=== PATIENT | female | born 1980 | race American Indian/Alaskan Native ===

== ENCOUNTER 2020-03-16 12:11 | Emergency (ER) | payer OTHER ==
[2020-03-16] MEDS ORDERED: ASPIRIN 325 MG TAB PO ONE (12:21)
[2020-03-16 13:01] LABS: Basophils # (Auto) 0.1 K/mm3 (0.0-0.1); Basophils % (Auto) 1.4 % (0.0-1.8); Eosinophils # (Auto) 0.2 K/mm3 (0.0-0.4); Eosinophils % (Auto) 2.6 % (0.0-4.3); Hematocrit 37.8 % (30.3-42.9); Hemoglobin 12.5 gm/dl (10.1-14.3); Lymphocytes % (Auto) 38.2 % (13.4-35.0); Mean Corpuscular HGB Conc 33 % (30-34); Mean Corpuscular Volume 84 fl (79-97); Monocytes # (Auto) 0.9 K/mm3 (0.0-0.8); Monocytes % (Auto) 11.8 % (0.0-7.3); Platelet Count 428 K/mm3 (140-440); Red Blood Count 4.51 M/mm3 (3.65-5.03); Red Cell Distribution Width 14.2 % (13.2-15.2)
--- NOTE | 2020-03-16 13:01 | XRay Report ---
CHEST 1 VIEW INDICATION / CLINICAL INFORMATION: Chest Pain. FINDINGS: SUPPORT DEVICES: None. HEART / MEDIASTINUM: No significant abnormality. LUNGS / PLEURA: No significant pulmonary or pleural abnormality. No pneumothorax. ADDITIONAL FINDINGS: No significant additional findings. IMPRESSION: 1. No acute findings. Signer Name: Jeremy Venegas MD Signed: 03/16/2020 12:56 PM Workstation Name: [id number]
[2020-03-16 13:29] LABS: Blood Urea Nitrogen 13 mg/dL (7-17); Calcium 9.3 mg/dL (8.4-10.2); Hemolysis Index 35
[2020-03-16 13:36] LABS: BUN/Creatinine Ratio 19
[2020-03-16 16:25] VITALS: BP 164/113
--- NOTE | 2020-03-16 16:29 | Event Note ---
ED Screening Note Date of service: 03/16/20 Time: 16:26 ED Screening Note: Pt c/o chest pain x1 week states newly diagnosed HTN denies leg pain/swelling or recent long travel This initial assessment/diagnostic orders/clinical plan/treatment(s) is/are subject to change based on patients health status, clinical progression and re- assessment by fellow clinical providers in the ED. Further treatment and workup at subsequent clinical providers discretion. Patient/guardian urged not to elope from the ED as their condition may be serious if not clinically assessed and managed. Initial orders include: labs ekg chest xr
--- NOTE | 2020-03-16 17:42 | Emergency Department Report ---
ED Chest Pain HPI - General Chief Complaint: Chest Pain Stated Complaint: chest pains Time Seen by Provider: 03/16/20 14:56 Source: patient Mode of arrival: Ambulatory Limitations: No Limitations - History of Present Illness Initial Comments: 40-year-old -[place] female patient presents with complaints of chest pain x1 week. Patient states pain has been intermittent and mostly left-sided. She describes the pain as a dull pressure. She reports last week she was newly diagnosed with hypertension when she was seen in the ED for a migraine. Patient states her blood pressure has been running in the 170s/ 110s since. She states she was not put on blood pressure medication for home. She also reports that she has an appointment with [facility] cardiology tomorrow. She rates her current pain as a 5/10 in severity. She denies any shortness of breath, leg pain/swelling, hormone use, history of DVT/PE/cancer, cough, or hemoptysis. Mumtaz downey also denies any personal or family history of heart disease. - Related Data Previous Rx's Medication Instructions Recorded Last Taken Type Naproxen [Naprosyn TAB] 500 mg PO BID PRN #15 tablet 04/26/15 Unknown Rx Acetaminophen/Codeine [Tylenol #3] 1 tab PO Q6H PRN #20 tab 06/01/15 Unknown Rx Ibuprofen [Motrin 800 MG tab] 800 mg PO Q8HR PRN #30 tablet 06/01/15 Unknown Rx Azithromycin [Zithromax TAB] 500 mg PO DAILY #5 tablet 06/25/18 Unknown Rx guaiFENesin [Robitussin] 200 mg PO TID #100 ml 06/25/18 Unknown Rx predniSONE [Deltasone] 20 mg PO DAILY #4 tablet 06/25/18 Unknown Rx amLODIPine 5 mg PO DAILY 14 Days #14 tab 03/16/20 Unknown Rx Allergies Allergy/AdvReac Type Severity Reaction Status Date / Time sumatriptan [From Imitrex] AdvReac Unknown Verified 04/25/15 18:52 sumatriptan succinate AdvReac Unknown Verified 04/25/15 18:52 [From Imitrex] Heart Score - HEART Score History: Slightly suspicious EKG: Normal Age: < 45 Risk factors: 1-2 risk factors Troponin: < normal limit HEART Score: 1 - Critical Actions Critical Actions: 0-3 pts:0.9-1.7%risk of adverse cardiac event.Candidate for discharge ED Review of Systems ROS: Stated complaint: chest pains Other details as noted in HPI Constitutional: denies: chills, diaphoresis, fever, malaise, weakness Eyes: denies: vision change ENT: denies: throat pain Respiratory: denies: cough, shortness of breath Cardiovascular: chest pain. denies: edema, syncope Gastrointestinal: denies: abdominal pain, nausea Skin: denies: change in color Neurological: denies: headache, numbness, paresthesias Hematological/Lymphatic: denies: easy bleeding ED Past Medical Hx - Past Medical History Previous Medical History?: Yes Hx Headaches / Migraines: Yes Hx Asthma: Yes - Surgical History Past Surgical History?: Yes Additional Surgical History: ACL repair, left side - Social History Smoking Status: Never Smoker Substance Use Type: None - Medications Home Medications: Home Medications Medication Instructions Recorded Confirmed Last Taken Type Naproxen [Naprosyn TAB] 500 mg PO BID PRN #15 tablet 04/26/15 Unknown Rx Acetaminophen/Codeine [Tylenol #3] 1 tab PO Q6H PRN #20 tab 06/01/15 Unknown Rx Ibuprofen [Motrin 800 MG tab] 800 mg PO Q8HR PRN #30 tablet 06/01/15 Unknown Rx Azithromycin [Zithromax TAB] 500 mg PO DAILY #5 tablet 06/25/18 Unknown Rx guaiFENesin [Robitussin] 200 mg PO TID #100 ml 06/25/18 Unknown Rx predniSONE [Deltasone] 20 mg PO DAILY #4 tablet 06/25/18 Unknown Rx amLODIPine 5 mg PO DAILY 14 Days #14 tab 03/16/20 Unknown Rx ED Physical Exam - General Limitations: No Limitations General appearance: alert, in no apparent distress, obese - Head Head exam: Present: atraumatic, normocephalic - Eye Eye exam: Present: normal appearance. Absent: scleral icterus - Neck Neck exam: Present: normal inspection - Respiratory Respiratory exam: Present: normal lung sounds bilaterally. Absent: respiratory distress - Cardiovascular Cardiovascular Exam: Present: regular rate, normal rhythm. Absent: systolic murmur, diastolic murmur, rubs, gallop - GI/Abdominal GI/Abdominal exam: Present: soft. Absent: distended, tenderness, guarding, rebound, rigid - Extremities Exam Extremities exam: Present: normal inspection, full ROM - Back Exam Back exam: Present: normal inspection - Neurological Exam Neurological exam: Present: alert, oriented X3, CN II-XII intact, normal gait - Psychiatric Psychiatric exam: Present: normal affect, normal mood - Skin Skin exam: Present: warm, dry, intact, normal color. Absent: rash, cyanosis, diaphoretic ED Course Vital Signs 03/16/20 03/16/20 12:20 16:24 Temperature 97.8 F 98.2 F Pulse Rate 66 73 Respiratory 20 16 Rate Blood Pressure 170/123 164/113 [Right] O2 Sat by Pulse 97 99 Oximetry ED Medical Decision Making - Lab Data Result diagrams: 03/16/20 12:26 03/16/20 12:26 Lab Results 03/16/20 03/16/20 Range/Units 12:26 12:26 WBC 7.9 (4.5-11.0) K/mm3 RBC 4.51 (3.65-5.03) M/mm3 Hgb 12.5 (10.1-14.3) gm/dl Hct 37.8 (30.3-42.9) % MCV 84 (79-97) fl MCH 28 (28-32) pg MCHC 33 (30-34) % RDW 14.2 (13.2-15.2) % Plt Count 428 (140-440) K/mm3 Lymph % (Auto) 38.2 H (13.4-35.0) % [place] % (Auto) 11.8 H (0.0-7.3) % Eos % (Auto) 2.6 (0.0-4.3) % Baso % (Auto) 1.4 (0.0-1.8) % Lymph # 3.0 (1.2-5.4) K/mm3 [place]oshone # 0.9 H (0.0-0.8) K/mm3 Eos # 0.2 (0.0-0.4) K/mm3 Baso # 0.1 (0.0-0.1) K/mm3 Seg Neutrophils % 46.0 (40.0-70.0) % Seg Neutrophils # 3.7 (1.8-7.7) K/mm3 Sodium 139 (137-145) mmol/L Potassium 3.9 (3.6-5.0) mmol/L Chloride 100.0 (98-107) mmol/L Carbon Dioxide 27 (22-30) mmol/L Anion Gap 16 mmol/L BUN 13 (7-17) mg/dL Creatinine 0.7 (0.6-1.2) mg/dL Estimated GFR > 60 ml/min BUN/Creatinine Ratio 19 % Glucose 84 (65-100) mg/dL Calcium 9.3 (8.4-10.2) mg/dL Troponin T < 0.010 (0.00-0.029) ng/mL - EKG Data EKG shows normal: sinus rhythm Rate: normal - EKG Data Interpretation: normal EKG - Radiology Data Radiology results: report reviewed CHEST 1 VIEW INDICATION / CLINICAL INFORMATION: Chest Pain. FINDINGS: SUPPORT DEVICES: None. HEART / MEDIASTINUM: No significant abnormality. LUNGS / PLEURA: No significant pulmonary or pleural abnormality. No pneumothorax. ADDITIONAL FINDINGS: No significant additional findings. IMPRESSION: 1. No acute findings. - Medical Decision Making 40-year-old -[place] female patient presents with complaints of chest pain x1 week. Patient states pain has been intermittent and mostly left-sided. She describes the pain as a dull pressure. She reports last week she was newly diagnosed with hypertension when she was seen in the ED for a migraine. Radha coulter states her blood pressure has been running in the 170s/ 110s since. She states she was not put on blood pressure medication for home. She also reports that she has an appointment with [facility] cardiology tomorrow. She rates her current pain as a 5/10 in severity. She denies any shortness of breath, leg pain/swelling, hormone use, history of DVT/PE/cancer, cough, or hemoptysis. Patient also denies any personal or family history of heart disease. CBC, CMP, and initial troponin are without acute abnormalities. Chest x-ray is normal. No abnormalities are noted on exam. Heart score = 1. PERC score = 0. Patient states she is unable to wait for repeat troponin and EKG and has de cided to sign out AMA. As stated previously, patient does have a follow-up with cardiology in the morning for stress test. Will send patient with prescription for amlodipine given elevated blood pressures persistently for a week. Strict return precautions were discussed in great detail with patient who verbalizes understanding. Critical care attestation.: If time is entered above; I have spent that time in minutes in the direct care of this critically ill patient, excluding procedure time. ED Disposition Clinical Impression: Chest pain Qualifiers: Chest pain type: other chest pain Qualified Code(s): R07.89 - Other chest pain; R07.8 - Other chest pain Disposition: LEFT AGAINST MED ADVICE Is pt being admited?: No Instructions: Hypertension (ED), Chest Pain (ED) Prescriptions: amLODIPine 5 mg PO DAILY 14 Days #14 tab
== END 2020-03-16 18:55 | disposition left against medical advice (07) ==
LOC: ED 12:11
DX: R07.89 Other chest pain (principal); G43.909 Migraine, unspecified, not intractable, without status migrainosus; J45.909 Unspecified asthma, uncomplicated; Z98.890 Other specified postprocedural states; Z79.1 Long term (current) use of non-steroidal anti-inflammatories (NSAID); Z79.2 Long term (current) use of antibiotics; Z79.899 Other long term (current) drug therapy; Z88.8 Allergy status to other drugs, medicaments and biological substances
CPT/HCPCS: 36415; 71045; 80048; 84484; 85025; 93005